=== PATIENT | male | born 1940 | race Caucasian/White ===

== ENCOUNTER 2017-08-07 09:43 | Emergency (ER) | payer MEDICARE ==
[2017-08-07 11:26] LABS: ABS Basophils 0 10^3/ul (0-0.2); ABS Eosinophils 0.2 10^3/ul (0-0.6); ABS Lymphocytes 2.2 10^3/ul (1.0-4.8); ABS Monocytes 0.4 10^3/ul (0-0.8); ABS Neutrophils 2.3 10^3/ul (1.5-7.7); ABS Nucleated RBC 0 10^3/ul; Eosinophil % 3.2 % (0-6); Hematocrit 41 % (42-52); Hemoglobin 14.9 g/dl (14.0-18.0); Lymphocyte % 43.4 % (25-47); Mean Corpuscular HGB Conc 36 g/dl (31-36); Mean Corpuscular Hemoglobin 31 pg (27-31); Mean Corpuscular Volume 85 fL (80-94); Mean Platelet Volume 7 um3 (7.4-10.4); Nucleated Red Blood Cells % 0.2; Platelet Count 161 10^3/ul (150-450); Red Blood Count 4.83 10^6/ul (4.0-5.4); Red Cell Distribution Width 14 % (10.5-15); White Blood Count 5.1 10^3/ul (3.5-10.8)
[2017-08-07 11:29] LABS: EGFR Non-African American 64.6 (>60)
[2017-08-07] MEDS ORDERED: Potassium Chlor TAB* 20 MEQ TAB.ER PO ONE (11:55)
--- NOTE | 2017-08-07 12:39 | RAD ---
INDICATION: Productive cough x1 month COMPARISON: None TECHNIQUE: PA and lateral views of the chest were obtained. FINDINGS: The heart and mediastinum are normal in size and contour. The lungs are grossly clear. There is no evidence of large pleural effusion. Degenerative changes of the thoracic spine includes loss of intervertebral disc height and anterior marginal osteophyte formation. There is no radiographic evidence of free air beneath the diaphragm IMPRESSION: No radiographic evidence of acute cardiopulmonary disease.
[2017-08-07] MEDS ORDERED: Azithromycin TAB* 250 MG PO ONE (13:03)
[2017-08-07 13:14] VITALS: BP 124/66
--- NOTE | 2017-08-08 18:09 | ED ---
Rigo More Angela, scribed for Ken Izaguirre MD on 08/07/17 at 1021 . Complex/Multi-Sys Presentation - HPI Summary HPI Summary: This pt is a 77 y/o male presenting to [facility] [place]/o cough and congestion x1 month. Pt describes productive cough with yellow and clear sputum. He notes fever, diaphoresis and wheezing (last night). He denies chest pain, SOB. Pt has been taking Mucinex. Pt called his PCP today (Dr. Prince) today and was told to come to the ED. - History Of Current Complaint Chief Complaint: EDGeneral Time Seen by Provider: 08/07/17 10:12 Hx Obtained From: Patient Onset/Duration: Lasting Weeks, Still Present Timing: Days Severity Currently: Moderate Severity Initially: Moderate Aggravating Factor(s): nothing Alleviating Factor(s): nothing Associated Signs And Symptoms: Positive: Cough, Wheezing, Fever, Other - diaphoresis. Negative: SOB, Nausea, Vomiting - Allergies/Home Medications Allergies/Adverse Reactions: Allergies Allergy/AdvReac Type Severity Reaction Status Date / Time No Known Allergies Allergy Verified 03/14/16 13:33 Home Medications: Home Medications Glucosamine CAP (NF) 1,000 cap PO BID 08/07/17 [History Confirmed 08/07/17] [place]-3 Fatty Acids (Nf) [Fish Oil (NF)] 1,000 mg PO DAILY 08/07/17 [History Confirmed 08/07/17] PMH/Surg Hx/FS Hx/Imm Hx Endocrine/Hematology History: Denies: Hx Diabetes Cardiovascular History: Denies: Hx Hypertension Infectious Disease History: No Infectious Disease History: Denies: Traveled Outside the [place] in Last 30 Days - Family History Known Family History: Positive: Diabetes - Father Family History: Brother: colon CA. - Social History Alcohol Use: Rare Substance Use Type: Reports: None Smoking Status (MU): Former Smoker Review of Systems Positive: Fever, Skin Diaphoresis. Negative: Chills Negative: Chest Pain Respiratory: Other - wheezing Positive: Cough. Negative: Shortness Of Breath Skin: Negative Neurological: Negative All Other Systems Reviewed And Are Negative: Yes Physical Exam - Summary Physical Exam Summary: VITAL SIGNS: Reviewed. GENERAL: Patient is a well-developed and nourished male who is lying comfortable in the stretcher. Patient is not in any acute respiratory distress. HEAD AND FACE: No signs of trauma. No ecchymosis, hematomas or skull depressions. No sinus tenderness. EYES: PERRLA, EOMI x 2, No injected conjunctiva, no nystagmus. EARS: Hearing grossly intact. Ear canals and tympanic membranes are within normal limits. MOUTH: Oropharynx within normal limits. NECK: Supple, trachea is midline, no adenopathy, no JVD, no carotid bruit, no c- spine tenderness, neck with full ROM. CHEST: Symmetric, no tenderness at palpation LUNGS: Crackles in both bases of the lungs. CVS: Regular rate and rhythm, S1 and S2 present, no murmurs or gallops appreciated. ABDOMEN: Soft, non-tender. No signs of distention. No rebound no guarding, and no masses palpated. Bowel sounds are normal. EXTREMITIES: FROM in all major joints, no edema, no cyanosis or clubbing. NEURO: Alert and oriented x 3. No acute neurological deficits. Speech is normal and follows commands. SKIN: Dry and warm Triage Information Reviewed: Yes Vital Signs On Initial Exam: Initial Vitals Temp Pulse Resp BP Pulse Ox 97.5 F 64 18 145/70 97 08/07/17 09:45 08/07/17 09:45 08/07/17 09:45 08/07/17 09:45 08/07/17 09:45 Vital Signs Reviewed: Yes Diagnostics - Vital Signs Vital Signs Temp Pulse Resp BP Pulse Ox 08/07/17 10:05 62 96 08/07/17 10:03 127/58 08/07/17 09:45 97.5 F 64 18 145/70 97 - Laboratory Result Diagrams: 08/07/17 11:00 08/07/17 11:00 Lab Statement: Any lab studies that have been ordered have been reviewed, and results considered in the medical decision making process. - Radiology Chest XR Xray Interpretation: No Acute Changes - IMPRESSION: No radiographic evidence of acute cardiopulmonary disease. Dr. Izaguirre has reviewed this radiology report. Radiology Interpretation Completed By: Radiologist Re-Evaluation - Re-Evaluation First Eval Re-Evaluation Time: 13:10 Comment: I reviewed the XR and lab results with the pt. Complex Multi-Symp Course/Dx Assessment/Plan: This pt is a 77 y/o male presenting to [facility] [place]/o cough and congestion x1 month. Pt describes productive cough with yellow and clear sputum. He notes fever, diaphoresis and wheezing (last night). He denies chest pain, SOB. Pt has been taking Mucinex. Pt called his PCP today (Dr. Prince) today and was told to come to the ED. Test results without any significant abnormalities except for potassium of 3.2, for which he was given potassium chloride. Influenza A and B is negative. Chest XR: No radiographic evidence of acute cardiopulmonary disease. In the ED course the pt continues to have productive cough. I believe the pt has a bacterial bronchitis, therefore he will be given azithromycin. I discussed the test results with the pt and the need to follow up with his PCP. Pt is hemodynamically stable, alert and oriented x3. - Diagnoses Provider Diagnoses: Acute bacterial bronchitis Discharge - Discharge Plan Condition: Stable Disposition: HOME Prescriptions: Azithromycin TAB* [Zithromax TAB (Z-KATHI) 250 mg #6 tabs] 250 mg PO DAILY #4 tab Patient Education Materials: Acute Bronchitis (ED) Referrals: Amrit Prince MD [Primary Care Provider] - 3 Days Additional Instructions: Please follow up with your primary care provider. RETURN TO THE ED FOR ANY WORSENING SYMPTOMS. The documentation as recorded by the Rigo singer Angela accurately reflects the service I personally performed and the decisions made by me, Ken Izaguirre MD.
== END 2017-08-07 13:16 | disposition home or self-care (01) ==
LOC: ED 09:43
DX: J20.8 Acute bronchitis due to other specified organisms (principal); Z87.891 Personal history of nicotine dependence
CPT/HCPCS: 36415; 71046; 80053; 85025; 86140; 87502; 99282; A9270-GY